=== PATIENT | female | born 1970 | race Caucasian/White ===

== ENCOUNTER 2019-10-21 13:03 | Emergency (ER) | payer OTHER ==
[~2019-10-21] VITALS: Ht 170.2 cm; Wt 77.1 kg
[~2019-10-21 13:03] MED LIST: APAP W/CODEINE1 TA2; AUGMENTIN 875875 M1 PO; CIPROFLOXACIN500 M1; DIFLUCAN150 MG; DOXYCYCLINE150 MG PO; DYNACIN100 MG PO; IBUPROFEN 800800 M1; MEDROLDOSEPACK; PREDNISONE 10 M10 MG PO; ROBAXIN 750 MG750 M1 PO
[2019-10-21] MEDS ORDERED: XANAX 0.5 MG0.5 M1 PO (13:36)
[2019-10-21] MEDS ORDERED: CYMBALTA20 MG PO (13:38)
[2019-10-21] MEDS ORDERED: LYRICA100 MG PO (13:39)
[2019-10-21] MEDS ORDERED: NORCO 5-325 TA1 EAC1 PO (15:53)
[2019-10-21 16:30] VITALS: BP 133/75
== END 2019-10-21 16:30 | disposition home or self-care (01) ==
LOC: M.ERS 13:03
DX: S13.8XXA Sprain of joints and ligaments of other parts of neck, initial encounter (principal); S09.90XA Unspecified injury of head, initial encounter; Z90.710 Acquired absence of both cervix and uterus; V89.2XXA Person injured in unspecified motor-vehicle accident, traffic, initial encounter; Y93.89 Activity, other specified; Y92.89 Other specified places as the place of occurrence of the external cause; Y99.8 Other external cause status

== ENCOUNTER 2021-07-16 17:51 | Emergency (ER) | payer OTHER ==
[~2021-07-16] VITALS: Ht 172.7 cm; Wt 86.2 kg
[~2021-07-16 17:51] MED LIST changes: +CYMBALTA20 MG PO; +LYRICA100 MG PO; +NORCO 5-325 TA1 EAC1 PO; +XANAX 0.5 MG0.5 M1 PO
[2021-07-16] MEDS ORDERED: IBUPROFEN 800800 M1 PO ×2 (21:42→22:07)
[2021-07-16] MEDS ORDERED: HYDROCODON-ACE1 EAC8 PO (22:03)
[2021-07-16 22:18] VITALS: BP 121/81
== END 2021-07-16 22:18 | disposition home or self-care (01) ==
LOC: M.ERS 17:51
DX: S29.011A Strain of muscle and tendon of front wall of thorax, initial encounter (principal); M79.641 Pain in right hand; J43.9 Emphysema, unspecified; M19.90 Unspecified osteoarthritis, unspecified site; Z90.710 Acquired absence of both cervix and uterus; Z90.89 Acquired absence of other organs; W18.30XA Fall on same level, unspecified, initial encounter; Y93.89 Activity, other specified; Y92.89 Other specified places as the place of occurrence of the external cause; Y99.9 Unspecified external cause status

== ENCOUNTER 2021-10-03 12:55 | Emergency (ER) | payer OTHER ==
[~2021-10-03] VITALS: Ht 170.2 cm; Wt 72.6 kg
[~2021-10-03 12:55] MED LIST changes: +HYDROCODON-ACE1 EAC8 PO; +IBUPROFEN 800800 M1 PO
[2021-10-03] MEDS ORDERED: FLEXERIL PO (14:00)
[2021-10-03] MEDS ORDERED: APAP W/CODEINE1 TA2 PO (14:00)
[2021-10-03] MEDS ORDERED: MEDROLDOSEPACK PO (14:00)
[2021-10-03 14:20] VITALS: BP 139/87
== END 2021-10-03 14:20 | disposition home or self-care (01) ==
LOC: M.ERS 12:55
DX: S20.211A Contusion of right front wall of thorax, initial encounter (principal); M19.90 Unspecified osteoarthritis, unspecified site; Z90.710 Acquired absence of both cervix and uterus; Z79.899 Other long term (current) drug therapy; W19.XXXA Unspecified fall, initial encounter; Y93.89 Activity, other specified; Y92.89 Other specified places as the place of occurrence of the external cause; Y99.8 Other external cause status